=== PATIENT | male | born 1975 | race Caucasian/White ===

== ENCOUNTER 2021-10-17 18:54 | Emergency (ER) | payer SELFPAY ==
[~2021-10-17] VITALS: Ht 182.9 cm; Wt 54.0 kg
[~2021-10-17 18:54] MED LIST: ALBU2.5V8 INH
[2021-10-17] MEDS ORDERED: IV NORMAL SALINE 1000ML BAG 1,000 ML IV ONE (20:00)
--- NOTE | 2021-10-17 20:08 | PHYS DOC ---
Past Medical History Past Medical History: Alcoholism, Asthma, Other Additional Past Medical Histor: CELIAC DISEASE, Drug abuse hx (SANDY DEL RIO APRN) Past Surgical History: No Surgical History (SANDY DEL RIO APRN) Smoking Status: Current Every Day Smoker Alcohol Use: Occasionally Drug Use: None (SANDY DEL RIO APRN) General Adult EDM: Chief Complaint: OTHER COMPLAINTS HPI: HPI: Patient is a 46-year-old male that presents today with abnormal labs. Patient comes from [facility] he had some labs drawn on October 13, 2021, labs came back with abnormal levels of calcium at 6.9 albumin of 1.9. Patient was [facility] by the [facility] facility for calcium drip. Patient states he has been incarcerated for about 75 to 90 days patient has a history of celiac disease, states that he has not been getting a gluten free diet, and has had chronic diarrhea since he was incarcerated. Patient does states she has some nausea and diarrhea, but is asking for a drink of water. (SANDY DEL RIO APRN) Review of Systems: Review of Systems: Constitutional: Denies fever or chills. [] Eyes: Denies change in visual acuity. [] HENT: Denies nasal congestion or sore throat. [] Respiratory: Denies cough or shortness of breath. [] Cardiovascular: Denies chest pain or edema. [] GI: Abdominal pain, nausea, diarrhea : Denies dysuria. [] Musculoskeletal: Body aches Integument: Denies rash. [] Neurologic: Dizziness. [] Endocrine: Denies polyuria or polydipsia. [] Lymphatic: Denies swollen glands. [] Psychiatric: Denies depression or anxiety. [] (SANDY DEL RIO APRN) Heart Score: C/O Chest Pain: N/A Risk Factors: Risk Factors: DM, Current or recent (<one month) smoker, HTN, HLP, family history of CAD, obesity. Risk Scores: Score 0 - 3: 2.5% MACE over next 6 weeks - Discharge Home Score 4 - 6: 20.3% MACE over next 6 weeks - Admit for Clinical Observation Score 7 - 10: 72.7% MACE over next 6 weeks - Early Invasive Strategies (SANDY DEL RIO APRN) Allergies: Allergies: Allergies Coded Allergies Type Severity Reaction Last Updated Verified gluten Allergy Severe 08/16/16 Yes (SANDY DEL RIO APRN) Physical Exam: PE: Constitutional: Chronically ill male in mild distress, . [] HENT: Normocephalic, atraumatic, bilateral external ears normal, oropharynx moist, no oral exudates, nose normal. [] Eyes: PERRLA, EOMI, conjunctiva normal, no discharge. [] Neck: Normal range of motion, no tenderness, supple, no stridor. [] Cardiovascular:Heart rate regular rhythm, no murmur [] Lungs & Thorax: Bilateral breath sounds clear to auscultation [] Abdomen: Bowel sounds hypoactive, abdomen tender diffusely no pulsatile masses noted [] Skin: Warm, dry, pale [] Back: No tenderness, no CVA tenderness. [] Extremities: No tenderness, no cyanosis, no clubbing, ROM intact, no edema. [] Neurologic: Alert and oriented X 3, normal motor function, normal sensory function, no focal deficits noted. [] Psychologic: Affect normal, judgement normal, mood normal. [] (SANDY DEL RIO APRN) Current Patient Data: Labs: Laboratory Tests Test 10/17/21 20:05 White Blood Count 5.5 x10^3/uL Red Blood Count 3.29 x10^6/uL Hemoglobin 10.9 g/dL Hematocrit 33.3 % Mean Corpuscular Volume 101 fL Mean Corpuscular Hemoglobin 33 pg Mean Corpuscular Hemoglobin Concent 33 g/dL Red Cell Distribution Width 22.0 % Platelet Count 353 x10^3/uL Neutrophils (%) (Auto) 61 % Lymphocytes (%) (Auto) 29 % Monocytes (%) (Auto) 9 % Eosinophils (%) (Auto) 0 % Basophils (%) (Auto) 1 % Neutrophils # (Auto) 3.4 x10^3/uL Lymphocytes # (Auto) 1.6 x10^3/uL Monocytes # (Auto) 0.5 x10^3/uL Eosinophils # (Auto) 0.0 x10^3/uL Basophils # (Auto) 0.0 x10^3/uL Platelet Estimate Adequate Poikilocytosis Slight Anisocytosis Mod Macrocytosis Slight Spherocytes Occ Target Cells Present Ovalocytes Few Schistocytes Occ Sodium Level 135 mmol/L Potassium Level 3.8 mmol/L Chloride Level 104 mmol/L Carbon Dioxide Level 24 mmol/L Anion Gap 7 Blood Urea Nitrogen 13 mg/dL Creatinine 0.7 mg/dL Estimated GFR (Cockcroft-Gault) 121.4 BUN/Creatinine Ratio 19 Glucose Level 87 mg/dL Lactic Acid Level 1.2 mmol/L Calcium Level 6.9 mg/dL Ionized Calcium 1.09 mmol/L Phosphorus Level 3.9 mg/dL Magnesium Level 1.6 mg/dL Total Bilirubin 0.3 mg/dL Aspartate Amino Transf (AST/SGOT) 53 U/L Alanine Aminotransferase (ALT/SGPT) 58 U/L Alkaline Phosphatase 200 U/L Creatine Kinase 231 U/L Troponin I High Sensitivity 9 ng/L Total Protein 4.5 g/dL Albumin 1.5 g/dL Albumin/Globulin Ratio 0.5 Current Medications Medications (Trade) Dose Ordered Sig/Denzel Route PRN Reason Start Time Stop Time Status Last Admin Dose Admin Sodium Chloride 1,000 ml @ 999 mls/hr 1X ONCE IV 10/17/21 20:00 10/17/21 21:00 DC 10/17/21 20:16 Magnesium Sulfate 50 ml @ 25 mls/hr 1X ONCE IV 10/17/21 21:30 10/17/21 23:29 Vital Signs: Vital Signs Date Time Temp Pulse Resp B/P (MAP) Pulse Ox O2 Delivery O2 Flow Rate FiO2 10/17/21 21:30 70 12 94/57 (69) 100 Room Air 10/17/21 21:00 72 19 98/56 (70) 99 10/17/21 20:30 74 14 127/65 (85) 93 Room Air 10/17/21 20:00 98.1 74 14 107/66 (80) 98 Room Air 98.1 (SANDY DEL RIO [employer]) EKG: EKG: EKG done at [address] Jaramillo at 2050 shows sinus rhythm at a rate of 61 with a CA interval of 206 ms with a QTC of 445. [] (SANDY DEL RIO APRN) Radiology/Procedures: Radiology/Procedures: [] (SANDY DELR IO APRN) Course & Med Decision Making: Course & Med Decision Making Pertinent Labs and Imaging studies reviewed. (See chart for details) [address] Stinson regarding this patient's labs, corrected calcium was 8.4, he believes that the patient follows a gluten-free diet that his labs will normalize out. He is requesting patient be released from the emergency department with strict instructions to follow a gluten-free diet. Spoke to officer and patient at the bedside regarding the recommendations of a gluten- free diet and they state if written on a prescription pad patient will be provided that diet. (SANDY DEL RIO APRN) Dragon Disclaimer: Dragon Disclaimer: This electronic medical record was generated, in whole or in part, using a voice recognition dictation system. (SANDY DEL RIO APRN) Departure Departure Impression: Primary Impression: CD (celiac disease) Additional Impression: Hypocalcemia Disposition: HOME / SELF CARE / HOMELESS Condition: STABLE Referrals: JAYE STINSON MD (PCP) Patient Instructions: Celiac Disease, Hypocalcemia, Adult Additional Instructions: Continue to follow a gluten-free diet, increase by mouth fluids. Follow-up with Dr. Stinson as needed Attending Signature Attending Signature I have reviewed the PA/FINISHED GOODS INSPECTOR's note and plan of care. I was available for consultation as needed during the patient's visit in the emergency department. I agree with the clinical impression, plan, and disposition. (ARLEEN JARAMILLO DO) SANDY DEL RIO APRN Oct 17, 2021 20:08 ARLEEN JARAMILLO DO Oct 18, 2021 23:49
[2021-10-17 20:17] LABS: BASO % 1 % (0-3); EOS % 0 % (0-3); HEMATOCRIT 33.3 % (39.0-53.0); HEMOGLOBIN 10.9 g/dL (13.0-17.5); LYMPH # 1.6 x10^3/uL (1.0-4.8); LYMPH % 29 % (24-48); MEAN CORPUSCULAR HEMOGLOBIN 33 pg (25-35); MEAN CORPUSCULAR HGB CONC 33 g/dL (31-37); MEAN CORPUSCULAR VOLUME 101 fL (79-100); MONO # 0.5 x10^3/uL (0.0-1.1); MONO % 9 % (0-9); NEUT # 3.4 x10^3/uL (1.8-7.7); NEUT % 61 % (31-73); PLATELET COUNT 353 x10^3/uL (140-400); RED BLOOD COUNT 3.29 x10^6/uL (4.30-5.70); WHITE BLOOD COUNT 5.5 x10^3/uL (4.0-11.0)
[2021-10-17 20:28] LABS: CALCIUM 6.9 mg/dL (8.5-10.1); CREATININE 0.7 mg/dL (0.7-1.3); GFR 121.4; POTASSIUM 3.8 mmol/L (3.5-5.1)
[2021-10-17 20:41] LABS: PLT ESTIMATE ADEQUATE (ADEQUATE)
[2021-10-17 20:42] LABS: ALBUMIN 1.5 g/dL (3.4-5.0); ALBUMIN/GLOBULIN RATIO 0.5 (1.0-1.7); ANISOCYTOSIS MOD; MAGNESIUM 1.6 mg/dL (1.8-2.4); PHOSPHORUS 3.9 mg/dL (2.6-4.7); POIKILOCYTOSIS SLIGHT; TARGET CELLS PRESENT; TOTAL BILIRUBIN 0.3 mg/dL (0.2-1.0); TOTAL PROTEIN 4.5 g/dL (6.4-8.2)
[2021-10-17 20:44] LABS: OVALOCYTES FEW; SCHISTOCYTES OCC; SPHEROCYTES OCC
[2021-10-17 21:30] VITALS: BP 94/57
[2021-10-17] MEDS ORDERED: MAGNESIUM SULFATE 2GM 50 ML IV ONE (21:30)
[2021-10-17 21:56] LABS: BILIRUBIN,URINE NEGATIVE (NEG); CLARITY,URINE CLEAR; COLOR,URINE YELLOW; NITRITE,URINE NEGATIVE (NEG); PROTEIN,URINE NEGATIVE (NEG-TRACE); UROBILINOGEN,URINE 0.2 mg/dL (0.2 mg/dL)
[2021-10-17 22:02] LABS: BACTERIA,URINE 0 /HPF (0-FEW); RBC,URINE 0 /HPF (0-2); WBC,URINE 0 /HPF (0-4)
--- NOTE | 2021-10-19 08:09 | EKG ---
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
--- NOTE | 2021-10-20 11:37 | NUR ---
IP: Attempted to contact pt concerning covid test. No answer, left a voicemail to return the call.
== END 2021-10-17 22:58 | disposition home or self-care (01) ==
LOC: EEVIPCON 18:54 → ER 18:54
DX: K90.0 Celiac disease (principal); E83.51 Hypocalcemia; J45.909 Unspecified asthma, uncomplicated; F10.20 Alcohol dependence, uncomplicated; F17.210 Nicotine dependence, cigarettes, uncomplicated; Z20.822 Contact with and (suspected) exposure to COVID-19; Z88.8 Allergy status to other drugs, medicaments and biological substances; Y90.9 Presence of alcohol in blood, level not specified
CPT/HCPCS: 36415; 80053; 81001; 82310; 82550; 83605; 83735; 84100; 84484; 85025; 87426; 93005; 96361; 96365; 99284; J3475; J7030; U0003; U0005